=== PATIENT | male | born 1995 | race African-American/Black ===

== ENCOUNTER 2023-11-10 17:37 | Emergency (ER) | payer OTHER, SELFPAY ==
[2023-11-10] VITALS (39 sets, daily range): BP systolic 99–127; BP diastolic 65–84; PULSE 45–81; RESP 3–23; TEMP 36.6; O2SAT 97–100
--- NOTE | ~2023-11-10 | CT_ITS ---
EXAMINATION: CT cervical spine wo con DATE: 11/10/2023 18:17 INDICATION: Altered mental status. Head injury. TECHNIQUE: Computed tomography (CT) of the cervical spine was performed without intravenous contrast. Automated exposure control and iterative reconstruction technique were employed. The dose-length pro duct was 262.87 mGy-cm. COMPARISON: None FINDINGS: There is mild emphysema. The heart is normal. Vertebral body heights are normal. There is m ildly decreased disc height at C5-C6. At C7-T1, there is mild bilateral facet joint osteoarthritis. N o neural foraminal stenosis. There is mild central canal stenosis at C5-C6. IMPRESSION: 1. No fracture. 2. Mild cervical spondylosis. 3. Mild emphysema. Reviewed, dictated and finalized at location A.
--- NOTE | ~2023-11-10 | CT_ITS ---
EXAMINATION: CT brain wo con DATE: 11/10/2023 18:17 INDICATION: Altered mental status. TECHNIQUE: Computed tomography (CT) of the head was performed without intravenous contrast. The mA wa s adjusted according to patient size. Iterative reconstruction technique was employed. The dose-lengt h product was 605.33 mGy-cm. COMPARISON: None FINDINGS: There is no intracranial hemorrhage, acute infarction, or abnormal intracranial mass lesion . The ventricles are normal in size. The orbits are normal. The paranasal sinuses are clear. The mast oid air cells are normal. IMPRESSION: 1. Normal brain. Reviewed, dictated and finalized at location A. IMPRESSION: 1. Normal brain.
--- NOTE | ~2023-11-10 | XR_ITS ---
EXAMINATION: XR chest 1V portable DATE: 11/10/2023 18:17 INDICATION: Altered mental status. TECHNIQUE: A single frontal view of the chest was obtained on 2 radiographs. COMPARISON: None. FINDINGS: There is no pneumonia, pleural effusion, or pneumothorax. The heart size is normal. IMPRESSION: 1. No acute cardiopulmonary disease. Reviewed, dictated and finalized at location A.
--- NOTE | 2023-11-10 17:43 | ECG_ITS ---
Test Date: 2023-11-10 17:56:07 Measurements Intervals [place] Rate: 58 P: 71 AR: 190 QRS: 87 QRSD: 88 T: 57 QT: 359 QTc: 355 Interpretive Statements SINUS BRADYCARDIA MARKED ST ELEVATION, CONSIDER INFERIOR INJURY [MARKED ST ELEVATION W/O EARLY REPOLARIZATION BORDERLINE ECG No previous ECG available for comparison Electronically Signed On 11-12-2023 13:30:19 CDT by Víctor Shine M.D.
--- NOTE | 2023-11-10 17:45 | ED.AMS ---
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 He was found to have shaking like seizure movements but he was able to answer some questions quickly after the shaking. There is some history of seizure activities however he is not on any medication. Accu-Chek at this time is 108. MD complaint: altered mental status, confusion and decreased responsiveness Onset (ago): minute(s) (30) Timing confirmed by: other ( By stander an EMS services) Severity: moderate Consistency of symptoms: waxing and waning Context: seizure disorder Associated symptoms: seizure Related Data Home Medications Medication Instructions Recorded Confirmed No Home Medications 11/10/23 11/10/23 Allergies Allergy/AdvReac Type Severity Reaction Status Date / Time shellfish derived Allergy Anaphylaxis Verified 11/10/23 18:26 Review of Systems Review of Systems: All systems reviewed & are unremarkable except as noted in HPI and below Constitutional: Constitutional: Reports no additional constitutional complaints Eyes: Eyes: Reports no additional eye complaints ENT: Reports system reviewed and no additional complaints, except as documented Cardiovascular: Cardiovascular: Reports no additional cardiovascular complaints Respiratory: Respiratory: Reports no additional respiratory complaints Gastrointestinal: Gastrointestinal: Reports no additional gastrointestinal complaints Genitourinary: Genitourinary: Reports no additional male genitourinary complaints Musculoskeletal: Musculoskeletal: Reports no additional musculoskeletal complaints Integumentary/Breasts: Skin/Breast: Reports system reviewed and no additional complaints, except as docu Neurologic: Reports system reviewed and no additional complaints, except as documented Psychiatric: Psychiatric: Reports no additional psychiatric complaints Endocrine: Endocrine: Reports no additional endocrine complaints Hematologic/Lymphatic: Hematologic/Lymphatic: Reports no additional hematologic/lymphatic complaints Allergic/Immunologic: Allergic/Immunologic: Reports no additional allergic/immunologic complaints Exam Const: General: no acute distress Nutritional Appearance: well nourished Limitations: altered mental status HENMT: Head: normal to inspection Ears: external ears normal Face/Nose/Sinus: Normal external nose present Eyes: Conjunctivae: conjunctivae normal Pupils: Equal, round and reactive pupils present EOM: EOMs intact bilaterally Neck: Neck: normal visual inspection Chest: Chest palpation & inspection: normal inspection of the chest Resp: Effort & Inspection: normal respiratory effort and not labored Auscultation: clear to auscultation bilaterally and no crackles Cardio: Rate: regular rate Rhythm: regular rhythm Heart sounds: no murmurs GI: Inspection: non-distended GI Palp: Yes Soft to palpation and No Tenderness to palpation present (GI) Auscultation: normal bowel sounds : General: Yes bladder normal to palpation Back/Spine/Pelvis: Back: no CVA tenderness Skin: General skin exam: normal color Rashes: no rashes Wounds: no wounds Neuro: General: moves all extremities, no meningeal signs, no focal motor deficits and CN's II-XI intact bilaterally Cranial nerves: Yes Nystagmus not present Other: patient is having seizure-like activity but is able to speak and reacts to pain during the events and is not postictal; patient has been on and off catatonic but back to normal after couple of hours when family arrived and is acting completely normal at this time Fast exam is negative for acute stroke NIH score is
[2023-11-10 17:57] LABS: Glucose Point of Care 108 mg/dl (65-105)
[2023-11-10 18:02] LABS: Basophils Absolute Auto 0.02 K/mm3 (0.00-0.10); Basophils Percent Auto 0.3 % (0.0-1.0); Eosinophils Absolute Auto 0.07 K/mm3 (0.02-0.50); Eosinophils Percent Auto 1.2 % (1.0-6.0); Hematocrit 40.9 % (40.0-54.0); Hemoglobin 13.6 g/dL (14.0-18.0); Immature Granulocyte Absolute 0.01 K/mm3 (0.00-0.00); Immature Granulocyte Percent A 0.2 % (0.0-0.0); Lymphocytes Absolute Auto 1.18 K/mm3 (1.10-4.50); Lymphocytes Percent Auto 19.7 % (18.0-42.0); Mean Corpuscular HGB Conc 33.3 g/dL (32-36); Mean Corpuscular Hemoglobin 27.8 pg (27.0-31.0); Mean Corpuscular Volume 83.6 fL (78.0-102.0); Mean Platelet Volume 10.2 fl (8.7-11.0); Monocytes Percent Auto 8.3 % (2.0-11.0); Neutrophils Absolute Auto 4.22 K/mm3 (1.70-7.20); Neutrophils Percent Auto 70.3 % (50.0-70.0); Platelet Count Result 192 K/mm3 (150-420); Red Blood Count 4.89 M/mm3 (4.70-6.10); Red Cell Distribution Width 14.4 % (11.6-14.4)
--- NOTE | 2023-11-10 18:15 | PC.NURSE ---
Patient is able to unlock his phone to call his cousin, had RN speak with him via speakerphone, he is on his way up to ED. [phone]
[2023-11-10 18:22] LABS: Alanine Aminotransferase 17 U/L (16-63); Albumin Level 4.3 g/dL (3.4-5.0); Alkaline Phosphatase 85 U/L (46-116); Anion Gap 12 mmol/L (4-12); Aspartate Amino Transferase 14 U/L (15-37); Bilirubin,Total 1.5 mg/dL (0.00-1.00); Blood Urea Nitrogen 16 mg/dL (7-18); Calcium 9.9 mg/dL (8.5-10.1); Carbon Dioxide 24 mmol/L (21-32); Chloride 103 mmol/L (98-108); Creatine Kinase 103 U/L (39-308); Estimated CRCL calculation 81 ml/min; Estimated Glomerular Filt Rate > 60; Glucose 97 mg/dL (70-99); Osmolality Calculated 289 mOsm/kg (285-295); Potassium 3.5 mmol/L (3.5-5.1); Sodium 139 mmol/L (136-145)
[2023-11-10 18:25] LABS: Ethanol < 3 mg/dL (0-6); Troponin I < 4.0 ng/L (0.00-60.4)
[2023-11-10] MEDS: SODIUM CHLORIDE 0.9% IV 1,000 ML 999 ML IV CONT (18:29)
--- NOTE | 2023-11-10 18:48 | PC.NURSE ---
Sister Krystal called Patient gave verbal permission to speak with sister. Phone transferred to room, patient spoke with sister who lives in [place] with mother. Phone number to reach them and keep them updated. [phone]
--- NOTE | 2023-11-10 18:50 | PC.NURSE ---
Patient's boss called Fermín Sin [phone], Patient gave verbal permission to speak with her.
--- NOTE | 2023-11-10 20:01 | ECG_ITS ---
Test Date: 2023-11-10 20:05:31 Measurements Intervals [place] Rate: 62 P: 68 [place]: 195 QRS: 88 QRSD: 90 T: 66 QT: 359 QTc: 367 Interpretive Statements SINUS RHYTHM WITH SINUS ARRHYTHMIA POSSIBLE LEFT ATRIAL ENLARGEMENT [-0.1mV P-WAVE IN V1/V2] EARLY REPOLARIZATION [ST ELEVATION WITH NORMALLY INFLECTED T-WAVE] EARLY REPOLARIZATION Compared to ECG 11/10/2023 17:56:07 SLIGHTLY INCREASED HEART RATE, NO OTHER CHANGE Electronically Signed On 11-12-2023 13:31:03 CDT by Víctor Shine M.D.
[2023-11-10 20:45] LABS: Amphetamine Screen Urine Negative (Negative); Barbiturate Screen Urine Negative (Negative); Benzodiazepines Screen Urine Positive (Negative); Cannabinoid Screen Urine Positive (Negative); Cocaine Screen Urine Negative (Negative); Methadone Screen Urine Negative (Negative); Opiate Screen Urine Negative (Negative); Phencyclidine Screen Urine Negative (Negative)
[2023-11-10 20:54] LABS: NT Pro B Type Natriuretic Pept 47 pg/mL (0-125); Troponin I < 4.0 ng/L (0.00-60.4)
--- NOTE | 2023-11-10 22:20 | PC.NURSE ---
Patient up walking with steady gait in room and down hallway without incident with this RN by his side. Patient not displaying any symptoms. Patient states he is cold but otherwise feels back to himself.
== END 2023-11-10 22:40 | disposition home or self-care (01) ==
PROVIDERS: Emergency Provider Emergency Medicine
DX: R56.9 Unspecified convulsions (principal); F43.0 Acute stress reaction
CPT/HCPCS: 36415; 70450; 71045; 72125; 80053; 80307; 82550; 82948; 83605; 83735; 83880; 84484; 85025; 93005; 96360; 99284; J7030